=== PATIENT | male | born 1985 | race Caucasian/White ===

== ENCOUNTER 2024-06-27 19:26 | Emergency (ER) | payer OTHER ==
[2024-06-27 19:45] LABS: BASO # 0.02 K/mm3 (0.02-0.10); EOS # 0.17 K/mm3 (0.04-0.40); EOS % 1.8 % (0.0-4.0); HEMATOCRIT 46.2 % (42.0-52.0); HEMOGLOBIN 15.4 g/dL (13.5-18.0); LYMPH# 2.28 K/mm3 (1.50-4.00); MEAN CELL VOLUME 83 fl (78-100); MEAN CORPUSCULAR HEMOGLOBIN 28 pg (27-31); MEAN CORPUSCULAR HGB CONC 33 g/dL (33-37); MEAN PLATELET VOLUME 10.6 fl (7.4-10.4); NEU # 6.42 K/mm3 (1.40-6.50); PLATELET COUNT 357 K/mm3 (130-400); RED BLOOD COUNT 5.54 M/mm3 (4.20-5.60); RED CELL DISTRIBUTION WIDTH 13.4 % (11.5-14.5); WHITE BLOOD COUNT 9.4 K/mm3 (4.8-10.8)
[2024-06-27 19:52] LABS: ALBUMIN 4.5 g/dL (3.5-5.0)
[2024-06-27 19:53] LABS: CALCIUM 10.3 mg/dL (8.3-10.5)
[2024-06-27 19:55] LABS: TOTAL PROTEIN 8.4 g/dL (6.4-8.3)
[2024-06-27 19:56] LABS: TOTAL BILIRUBIN 0.3 mg/dL (0.2-1.2)
[2024-06-27 19:59] LABS: D-DIMER 2.5 mg/L FEU (0.15-0.50)
[2024-06-27] MEDS ORDERED: NS 100 ML IV SCH (20:40)
[2024-06-27] MEDS ORDERED: Iohexol 350 - 100 ML VIAL IV ONE (20:41)
[2024-06-27] MEDS ORDERED: NOVAPLUS L80 MG/0.8 SQ (21:00)
[2024-06-27 21:10] VITALS: BP 126/79
== END 2024-06-27 21:11 | disposition home or self-care (01) ==
LOC: ED 19:26
PROVIDERS: Family Medicine
DX: M79.89 Other specified soft tissue disorders (principal); M79.661 Pain in right lower leg; R79.89 Other specified abnormal findings of blood chemistry
CPT/HCPCS: J1650; Q9967

== ENCOUNTER → 2024-06-29 | Outpatient (CLI) | payer OTHER ==
[~2024-06-29] MED LIST: NOVAPLUS L80 MG/0.8 SQ
== END ==
LOC: VAS 09:02
DX: Z13.6 Encounter for screening for cardiovascular disorders (principal)